=== PATIENT | female | born 1990 | race American Indian/Alaskan Native ===

== ENCOUNTER 2017-09-03 16:52 | Emergency (ER) | payer SELFPAY ==
[2017-09-03 17:30] LABS: Basophils # (Auto) 0.1 K/mm3 (0.0-0.1); Basophils % (Auto) 1.1 % (0.0-1.8); Eosinophils % (Auto) 0.3 % (0.0-4.3); Hematocrit 45.4 % (30.3-42.9); Lymphocytes # (Auto) 2.2 K/mm3 (1.2-5.4); Lymphocytes % (Auto) 43.7 % (13.4-35.0); Mean Corpuscular HGB Conc 33 % (30-34); Mean Corpuscular Hemoglobin 28 pg (28-32); Mean Corpuscular Volume 85 fl (79-97); Monocytes # (Auto) 0.3 K/mm3 (0.0-0.8); Monocytes % (Auto) 6.2 % (0.0-7.3); Red Blood Count 5.34 M/mm3 (3.65-5.03); Red Cell Distribution Width 12.5 % (13.2-15.2)
[2017-09-03 17:35] LABS: Platelet Count 179 K/mm3 (140-440)
[2017-09-03] MEDS ORDERED: TYLENOL PO ONE (21:39)
[2017-09-03 21:56] VITALS: BP 136/93
[2017-09-03 21:59] LABS: Bacteria,Urine 1+ /HPF (Negative); Bilirubin,Urine NEG (Negative); Blood,Urine LG (Negative); Protein,Urine <15 mg/dL mg/dL (Negative); Urobilinogen,Urine < 2.0 mg/dL (<2.0)
[2017-09-03 22:06] LABS: Color,Urine Straw (Yellow)
--- NOTE | 2017-09-03 22:52 | Ultrasound Report ---
FINAL REPORT PROCEDURE: US PELVIC COMPLETE TECHNIQUE: Real-time transabdominal sonography in multiple planes of pelvis was performed with image documentation. This examination was performed without Doppler. Vascular abnormalities, including ovarian torsion, will not be detectable without Doppler evaluation. CPT 15557 HISTORY: preg, 12 wks, vag bleed, HCG 0, eval retained POC COMPARISON: No prior studies are available for comparison. FINDINGS: The uterus is anteverted measuring 8.4 x 4.3 x 5.8 centimeter. There is heterogeneous echogenicity and thickening of the endometrial canal in the lower uterine segment extending into the cervix measuring up to 2.2 centimeter AP diameter. The appearance is suspicious for retained products of conception. Some of the suspected retained products may be projecting through the cervix. I do not see evidence of a living intrauterine . No uterine masses are identified. The endometrial stripe in the region of the fundus of the uterus measures 1.4 centimeters and is suboptimally seen. Transvaginal scanning was not performed. Right and left ovaries are visualized and showed no abnormalities. No abnormal adnexal masses are seen. The right ovary measures 2.9 x 2.0 x 2.8 centimeter. The left ovary measures 2.6 x 1.5 x 1.4 centimeter. IMPRESSION: Abnormal thickening and heterogeneous echogenicity in the endometrial canal within the lower uterine segment extending towards the cervix suspicious for retained products of conception.. I do not see evidence of a living intrauterine . The endometrial stripe in the region of the fundus of the uterus is mildly prominent although suboptimally seen. If further evaluation is clinically indicated transvaginal scanning may be helpful. The ovaries are unremarkable.
--- NOTE | 2017-09-03 23:22 | Emergency Department Report ---
ED HPI - General Chief complaint: Vaginal Bleeding Stated complaint: BLEEDING 12WKS PREG Time Seen by Provider: 09/03/17 21:26 Source: patient Mode of arrival: Ambulatory Limitations: No Limitations - History of Present Illness Initial comments: 12 week female presents with vaginal bleeding onset spontaneously of this morning, of large amount, soaking several pads, with large clots, preceded by one or 2 days of significant lower back and pelvic cramping intermittently. Obstetric history G1, P0, A0, patient had had no preceding consultations with , no trauma, no recent illness. She is in good general health otherwise, has lower abdominal discomfort of moderate extent, localized to the pelvic area, worse when she cramps with passage of clots. She is otherwise stable. Onset/Timin -: Sudden, hour(s) Location: pelvis Radiation: back Severity: moderate Severity scale (0 -10): 6 Consistency: intermittent Improves with: none Worsens with: none Associated symptoms: denies other symptoms Vaginal bleeding: heavy, clots :: Yes Number of weeks : 12 - Related Data Previous Rx's Medication Instructions Recorded Last Taken Type HYDROcodone/ACETAMINOPHEN [[place] 1 - 2 each PO Q4-6H PRN #20 tablet 09/03/17 Unknown Rx 5-325 Tablet] Allergies Allergy/AdvReac Type Severity Reaction Status Date / Time No Known Allergies Allergy Unverified 09/03/17 17:01 ED Review of Systems ROS: Stated complaint: BLEEDING 12WKS PREG Other details as noted in HPI Comment: All other systems reviewed and negative Constitutional: denies: chills, fever ENT: denies: throat pain Respiratory: denies: cough, shortness of breath, wheezing Cardiovascular: denies: chest pain, palpitations Endocrine: no symptoms reported Gastrointestinal: denies: abdominal pain, nausea, diarrhea Genitourinary: as per HPI Musculoskeletal: back pain Skin: denies: rash, lesions Neurological: denies: headache, weakness, paresthesias Psychiatric: denies: anxiety, depression Hematological/Lymphatic: denies: easy bleeding, easy bruising ED Past Medical Hx - Past Medical History Hx CVA: Yes Hx Seizures: Yes - Surgical History Past Surgical History?: Yes Additional Surgical History: biopsy of cervix - Social History Smoking Status: Never Smoker Substance Use Type: None - Medications Home Medications: Home Medications Medication Instructions Recorded Confirmed Last Taken Type HYDROcodone/ACETAMINOPHEN [[place] 1 - 2 each PO Q4-6H PRN #20 tablet 09/03/17 Unknown Rx 5-325 Tablet] ED Physical Exam - General Limitations: No Limitations General appearance: alert, in no apparent distress - Head Head exam: Present: atraumatic, normocephalic - Eye Eye exam: Present: PERRL, EOMI - ENT ENT exam: Present: mucous membranes moist - Neck Neck exam: Present: normal inspection, full ROM. Absent: tenderness - Respiratory Respiratory exam: Present: normal lung sounds bilaterally. Absent: respiratory distress, wheezes, rales, rhonchi - Cardiovascular Cardiovascular Exam: Present: regular rate, normal heart sounds - GI/Abdominal GI/Abdominal exam: Present: soft, tenderness (mild, mid lower abdomen, nonlocalized). Absent: rebound, normal bowel sounds - Rectal Rectal exam: Present: deferred - Extremities Exam Extremities exam: Present: normal inspection, full ROM. Absent: pedal edema - Back Exam Back exam: Present: normal inspection. Absent: tenderness - Neurological Exam Neurological exam: Present: alert, oriented X3 - Psychiatric Psychiatric exam: Present: normal affect, normal mood - Skin Skin exam: Present: warm, dry, intact, normal color. Absent: rash ED Course Vital Signs 09/03/17 09/03/17 16:56 21:55 Temperature 36.7 C Pulse Rate 92 H 81 Respiratory 18 16 Rate Blood Pressure 140/102 Blood Pressure 136/93 [Left] O2 Sat by Pulse 100 97 Oximetry - Reevaluation(s) Reevaluation #1: 09/03/17 23:21 Stable on repeat examination, feels somewhat improved with Tylenol for discomfort ED Medical Decision Making - Lab Data Result diagrams: 09/03/17 17:02 - Radiology Data Radiology results: report reviewed (there is heterogeneous echogenicity and thickening of the endometrial canal of the lower uterine and cervical segment, measuring 2.2 cm maximal AP diameter. This is suspicious for retained products of conception, but no living intrauterine identified, no uterine masses. Ovaries are normal.) - Medical Decision Making This primigravida 12 week patient has sustained a complete , spontaneous, with moderate amount of retained products of conception. She is clinically stable, may be discharged, will be treated for discomfort, advised to rest, and to have repeat obstetric examination within the coming week if she has not completely discharged remaining products and does not have adequate cessation of bleeding. Patient's blood count is B+, she does not need RhoGAM. Critical care attestation.: If time is entered above; I have spent that time in minutes in the direct care of this critically ill patient, excluding procedure time. ED Disposition Clinical Impression: Completed inevitable , Retained products of conception after miscarriage Is pt being admited?: No Does the pt Need Aspirin: No Condition: Stable Instructions: Spontaneous Miscarriage (ED) Prescriptions: HYDROcodone/ACETAMINOPHEN [[place] 5-325 Tablet] 1 - 2 each PO Q4-6H PRN #20 tablet PRN Reason: Pain, Moderate (4-6) Referrals: PRIMARY CARE,MD [Primary Care Provider] - 3-5 Days Forms: Work/School Release Form(ED) Time of Disposition: 23:25
== END 2017-09-03 23:46 ==
LOC: ED 16:52
DX: O03.9 Complete or unspecified spontaneous abortion without complication (principal); Z86.73 Personal history of transient ischemic attack (TIA), and cerebral infarction without residual deficits; Z3A.12 12 weeks gestation of pregnancy
CPT/HCPCS: 36415; 76856; 81001; 84702; 85025; 86850; 86900; 86901; 99284

== ENCOUNTER 2018-12-11 15:46 | Emergency (ER) | payer OTHER ==
[2018-12-11] MEDS ORDERED: MORPHINE 4 MG/1 ML INJ IV ONE (16:57)
[2018-12-11] MEDS ORDERED: SODIUM CHLORIDE 0.9% 1000 ML 1,000 ML IV ONE (16:57)
[2018-12-11] MEDS ORDERED: ONDANSETRON 4 MG/2 ML INJ IV ONE (16:57)
[2018-12-11 17:13] LABS: Basophils # (Auto) 0.1 K/mm3 (0.0-0.1); Basophils % (Auto) 0.9 % (0.0-1.8); Eosinophils % (Auto) 0.2 % (0.0-4.3); Hematocrit 46.6 % (30.3-42.9); Hemoglobin 15.7 gm/dl (10.1-14.3); Lymphocytes # (Auto) 1.9 K/mm3 (1.2-5.4); Lymphocytes % (Auto) 28.4 % (13.4-35.0); Mean Corpuscular HGB Conc 34 % (30-34); Mean Corpuscular Volume 84 fl (79-97); Monocytes # (Auto) 0.6 K/mm3 (0.0-0.8); Monocytes % (Auto) 8.4 % (0.0-7.3); Platelet Count 201 K/mm3 (140-440); Red Blood Count 5.57 M/mm3 (3.65-5.03); Red Cell Distribution Width 13.5 % (13.2-15.2)
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
[2018-12-11 17:31] LABS: Alanine Aminotransferase 17 units/L (7-56); Albumin 4.7 g/dL (3.9-5); BUN/Creatinine Ratio 13; Blood Urea Nitrogen 10 mg/dL (7-17); Calcium 9.7 mg/dL (8.4-10.2); Hemolysis Index 24
[2018-12-11 17:34] LABS: INR 1.15 (0.87-1.13)
[2018-12-11 17:35] LABS: Partial Thromboplastin Time 31.5 Sec. (24.2-36.6)
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
[2018-12-11 18:32] VITALS: BP 138/92
== END 2018-12-11 19:08 | disposition home or self-care (01) ==
LOC: ED 15:46
DX: R10.9 Unspecified abdominal pain (principal); R07.89 Other chest pain; Z86.73 Personal history of transient ischemic attack (TIA), and cerebral infarction without residual deficits; Z79.899 Other long term (current) drug therapy; V49.49XA Driver injured in collision with other motor vehicles in traffic accident, initial encounter; Y93.89 Activity, other specified; Y92.410 Unspecified street and highway as the place of occurrence of the external cause; Y99.8 Other external cause status
CPT/HCPCS: 36415; 71260; 74177; 80053; 85025; 85610; 85730; 96374; 96375; 99284; J2270; J2405; J7030; Q9967

== ENCOUNTER 2019-03-09 13:06 | Emergency (ER) | payer SELFPAY ==
--- NOTE | 2019-03-09 14:48 | Event Note ---
ED Screening Note Date of service: 03/09/19 Time: 14:47 ED Screening Note: 28 y o f presents with n/v/d x 2 days also cc of gen abd pain, jaramillo hx of irregular cycles This initial assessment/diagnostic orders/clinical plan/treatment(s) is/are subject to change based on patients health status, clinical progression and re- assessment by fellow clinical providers in the ED. Further treatment and workup at subsequent clinical providers discretion. Patient/guardian urged not to elope from the ED as their condition may be serious if not clinically assessed and managed. Initial orders include: ua,upt acc eval
[2019-03-09 14:49] VITALS: BP 140/96
[2019-03-09 15:16] LABS: HCG Qualitative,Urine Negative (Negative)
[2019-03-09 15:21] LABS: Bacteria,Urine 4+ /HPF (Negative); Bilirubin,Urine NEG (Negative); Blood,Urine NEG (Negative); Color,Urine Straw (Yellow); Mucus,Urine FEW /HPF; Protein,Urine <15 mg/dL mg/dL (Negative); Urobilinogen,Urine < 2.0 mg/dL (<2.0)
== END 2019-03-09 15:00 | disposition left against medical advice (07) ==
LOC: ED 13:06
DX: R11.2 Nausea with vomiting, unspecified (principal); R19.7 Diarrhea, unspecified; Z53.21 Procedure and treatment not carried out due to patient leaving prior to being seen by health care provider
CPT/HCPCS: 81001; 81025

== ENCOUNTER 2020-11-05 20:25 | Emergency (ER) | payer SELFPAY | END 2020-11-06 05:00 | LOC: ED 20:25 | DX: O26.859 Spotting complicating pregnancy, unspecified trimester (principal); Z3A.00 Weeks of gestation of pregnancy not specified; Z53.21 Procedure and treatment not carried out due to patient leaving prior to being seen by health care provider ==